=== PATIENT | female | born 1960 | race Caucasian/White ===

== ENCOUNTER → 2020-12-29 17:43 | Outpatient (CLI) | payer OTHER, SELFPAY ==
--- NOTE | ~2020-12-29 | XR_ITS ---
XR forearm LT 2V DATE: 12/29/2020 18:30 INDICATION: Fall. Left forearm pain TECHNIQUE: AP and lateral views COMPARISON: None FINDINGS: Mildly comminuted intra-articular fracture of the lateral condyle of the distal humerus wit h associated elevated fat pads consistent with hemarthrosis. No other fracture or dislocation is detected. Normal alignment at the wrist joint. IMPRESSION: Comminuted lateral condylar fracture of the distal humerus with hemarthrosis Reviewed, dictated and finalized at location A. IMPRESSION: Comminuted lateral condylar fracture of the distal humerus with hem arthrosis
--- NOTE | ~2020-12-29 | XR_ITS ---
XR humerus LT DATE: 12/29/2020 18:30 INDICATION: Fall. Left arm and forearm pain TECHNIQUE: AP and lateral views COMPARISON: 12/29/2020 left forearm FINDINGS: There is a mildly comminuted intra-articular fracture of the lateral humeral condyle with e levation of the fat pads consistent with hemarthrosis. No other fracture or dislocation is evident. IMPRESSION: Intra-articular lateral condylar fracture of the distal humerus Reviewed, dictated and finalized at location A.
== END ==
DX: S42.452A Displaced fracture of lateral condyle of left humerus, initial encounter for closed fracture (principal); X58.XXXA Exposure to other specified factors, initial encounter
CPT/HCPCS: 73060; 73090